=== PATIENT | male | born 1965 | race American Indian/Alaskan Native ===

== ENCOUNTER 2018-08-24 11:43 | Emergency (ER) | payer SELFPAY ==
[2018-08-24 11:55] VITALS: BP 111/78
--- NOTE | 2018-08-24 12:06 | Emergency Department Report ---
Chief Complaint: Medical Clearance Stated Complaint: BLOOD PRESSURE DROPPING Time Seen by Provider: 08/24/18 12:03 - HPI History of Present Illness: pt is visiting from out of town he had all of his bp meds together; including clonidine which he does not usually took. he accidently took the clonidine with his other meds- see med list on pt data form Pt was monitoring his bp at home and it went from 130- 70's systolic Pt is dizzy but no cp or sob pt called his heart MD who told him because of his bad heart to come to er. pmh CHF EF 30 HTN HPLD GERD MSE completed - Exam Vital Signs: Vital Signs 08/24/18 11:52 Temperature 97.6 F Pulse Rate 64 Respiratory 18 Rate Blood Pressure 111/78 [Right] O2 Sat by Pulse 96 Oximetry MSE screening note: Focused history and physical exam performed. Due to findings the following was ordered: ED Disposition for MSE Condition: Stable
--- NOTE | 2018-08-24 12:35 | Emergency Department Report ---
ED Dizziness HPI - General Chief Complaint: Medical Clearance Stated Complaint: BLOOD PRESSURE DROPPING Time Seen by Provider: 08/24/18 12:03 Source: patient Mode of arrival: Ambulatory Limitations: No Limitations - History of Present Illness Initial Comments: Mr. Clarke is a very pleasant 53 yo male with hx of congestive heart failure and CKD who presents with lightheadedness and hypotension after accidentally PRN clonidine with his morning medications Bystolic and Entresto. His morning BP was 132/90. He is traveling from [place]. So he had all his pills together in a travel container. He only takes clonidine with SBP > 155 mm Hg. Repeat blood pressure readings at home 82/56 and 77/60. His allergist immunologist instructed him to go to ER. He has mild drowsiness which he attributes to normal side effect of clonidine. He was in his normal state of health this morning. Currently denies chest pain or shortness of breath. Time of ingestion 09:30 AM Complaint: lightheadedness -: Gradual, This morning Timing: gradual onset History of Same: Yes (had hypotension when optimizing new medication regimen inital diagnosis) Severity: mild Improves With: rest Worsens With: nothing Associated Symptoms: denies other symptoms - Related Data Allergies Allergy/AdvReac Type Severity Reaction Status Date / Time vancomycin Allergy Unknown Verified 08/24/18 11:48 ED Review of Systems ROS: Stated complaint: BLOOD PRESSURE DROPPING Other details as noted in HPI Comment: All other systems reviewed and negative Constitutional: denies: fever, malaise Respiratory: denies: cough Cardiovascular: denies: chest pain ED Past Medical Hx - Past Medical History Previous Medical History?: Yes Hx Hypertension: Yes Hx Congestive Heart Failure: Yes Hx Renal Disease: Yes (CKD stage 3) Additional medical history: herniated disc - Surgical History Past Surgical History?: Yes Additional Surgical History: right shoulder, left elbow - Social History Smoking Status: Never Smoker Substance Use Type: Alcohol ED Physical Exam - General Limitations: No Limitations General appearance: alert, in no apparent distress, other (steady brisk ambulation to treatment room) - Head Head exam: Present: atraumatic, normocephalic - Eye Eye exam: Present: normal appearance - ENT ENT exam: Present: mucous membranes moist - Neck Neck exam: Present: normal inspection, full ROM. Absent: tenderness, meningismus - Respiratory Respiratory exam: Present: normal lung sounds bilaterally. Absent: respiratory distress, wheezes, rales, rhonchi - Cardiovascular Cardiovascular Exam: Present: regular rate, normal rhythm, normal heart sounds. Absent: systolic murmur, diastolic murmur, rubs, gallop - GI/Abdominal GI/Abdominal exam: Present: soft, normal bowel sounds. Absent: distended, tenderness, guarding, rebound - Rectal Rectal exam: Present: deferred - Extremities Exam Extremities exam: Present: normal inspection - Back Exam Back exam: Present: normal inspection - Neurological Exam Neurological exam: Present: alert, oriented X3, normal gait. Absent: motor sensory deficit - Psychiatric Psychiatric exam: Present: normal affect, normal mood - Skin Skin exam: Present: warm, dry, intact, normal color. Absent: rash ED Course Vital Signs 08/24/18 11:52 Temperature 97.6 F Pulse Rate 64 Respiratory 18 Rate Blood Pressure 111/78 [Right] O2 Sat by Pulse 96 Oximetry ED Medical Decision Making - Medical Decision Making Mr. Flowers presents today with lightheadedness and hypotension after accidental ingestion of clonidine his PRN antihypertensive medication. For presentation today, I do not suspect acute coronary syndrome, CVA, TIA or arrhythmia. He does not have signs or symptoms of CHF exacerbation. No chest pain or shortness of breath to indicate pulmonary embolism. I contacted poison control. Stitching Machine Feeder Or Offbearer recommended cardiac monitoring for 2 hours and then discharge is stable. Mr. Clarke politely declined further observation. AFter one hour in the ED, he is now symptoms free with normal blood pressure. Consequently, he is leaving against medical advice. Critical care attestation.: If time is entered above; I have spent that time in minutes in the direct care of this critically ill patient, excluding procedure time. ED Disposition Clinical Impression: Hypotension, Accidental drug ingestion, CHF (congestive heart failure), CKD (chronic kidney disease) Disposition: DC-07 LEFT AGAINST MED ADVICE Is pt being admited?: No Does the pt Need Aspirin: No Condition: Stable
== END 2018-08-24 13:19 | disposition left against medical advice (07) ==
LOC: ED 11:43
DX: I95.89 Other hypotension (principal); R42 Dizziness and giddiness; T46.5X5A Adverse effect of other antihypertensive drugs, initial encounter; E11.22 Type 2 diabetes mellitus with diabetic chronic kidney disease; I13.0 Hypertensive heart and chronic kidney disease with heart failure and stage 1 through stage 4 chronic kidney disease, or unspecified chronic kidney disease; N18.9 Chronic kidney disease, unspecified; I50.9 Heart failure, unspecified; Z88.1 Allergy status to other antibiotic agents; Y92.89 Other specified places as the place of occurrence of the external cause
CPT/HCPCS: 99282